=== PATIENT | male | born 1965 | race Caucasian/White ===

== ENCOUNTER 2016-06-24 11:54 | Emergency (ER) | payer OTHER ==
[2016-06-24] MEDS ORDERED: Adacel (T-DAP) 0.5 ML VIAL ONE (12:26)
--- NOTE | 2016-06-24 13:09 | ERRECORD ---
[facility] EMERGENCY RECORD HPI EXTREMITY (12:44 DHAM) CHIEF COMPLAINT: Patient presents for evaluation of pain and swelling to right pointer fingernail area. HISTORIAN: History provided by patient. MECHANISM OF INJURY: Unknown mechanism. LOCATION: Symptoms are localized, most severe in medial side of the right pointer finger. QUALITY: Pain is dull in nature, described as aching, described as pressure-like. SEVERITY: Current severity of pain rated as 8/10. TIME COURSE: Gradual onset of symptoms, 7, days priror to arrival, Symptoms are worsening, swelling has doubled in the last 24 hours. ASSOCIATED WITH: Associated with warmth, redness, swelling and increasing pain. EXACERBATED BY: Patient's condition exacerbated by nothing. RELIEVED BY: Patient's condition relieved by nothing. ROS (12:46 DHAM) CONSTITUTIONAL: Historian denies chills, denies fever. MUSCULOSKELETAL: Historian denies injury, pain just on the radial side of the right pointer fingernail. SKIN: see above. NEUROLOGIC: Historian denies paresthesias. ENDOCRINE: Historian denies polydipsia, denies polyuria. HEMO/LYMPHATIC: Historian denies abnormal blood clotting, denies easy bruising. ALLERGIC/IMMUNOLOGIC: Historian denies frequent infections. PAST MEDICAL HISTORY (12:04 HASA) MEDICAL HISTORY: Notes: Past medical history of hypertension. Reviewed on 06/24/16. MALE SURGICAL HISTORY: History of back surgery. History of left hand surgery x2. Reviewed on 06/24/16. PSYCHIATRIC HISTORY: Notes: No psychiatric history. Reviewed on 06/24/16. KNOWN ALLERGIES Penicillins CURRENT MEDICATIONS enalapril maleate: TABLET : Strength - 20 mg : ORAL Patient Dose: 20 mg Oral once a day. (12: HASA) PriLOSEC: CAPSULE,DELAYED RELEASE (ENTERIC COATED) : Strength - 20 mg : ORAL Patient Dose: 20 mg Oral once a day. (12: HASA) ibuprofen: TABLET : Strength - 200 mg : ORAL Patient Dose: 4 tab(s) Oral once a day. (12:02 HASA) &a-1R&a+25V*p+0X*[id number]*c202B*c15G*c2P*p-0X&a-25V&a+1R Name: Dk Yadav : 1965 M51 MedRec: [id number] AcctNum: [id number] Prepared: Hyun Jun 25, 2016 09:00 by Interface Page 1 of 3 pMD [facility] EMERGENCY RECORD VITAL SIGNS (11:58 HASA) VITAL SIGNS: BP: 125/80, Pulse: 97, Resp: 16 (Non-Labored), Temp: 98.3 (Oral), Pain: 8, O2 sat: 96 on Room Air, Time: 06/24/2016 11:58. PHYSICAL EXAM (12:47 DHAM) CONSTITUTIONAL: Vital signs reviewed, Patient afebrile, Pulse normal, Blood pressure normal, Respiratory rate normal, Patient appears non toxic, Patient appears in pain, in mild pain distress, Patient alert and oriented to person, place and time. UPPER EXTREMITY: right pointer finger with moderate swelling on the radial side of the nail with obvious paronychia. there is mild fluctuance, redness and swelling. normal cap refill. all joints of the pointer finger with normal rom. no felon noted on the palmar surface. normal sensation and motor fxn noted. NEURO: Lyford coma scale 15, Neuro exam findings include patient oriented to person, place and time, Speech normal, Gait normal. SKIN: Skin exam included findings of skin warm, dry, and normal in color, no rash, see UE above. LYMPHATIC: no lymphadenopathy of the RUE noted. MEDICATION ADMINISTRATION SUMMARY Drug Name: Adacel(Tdap Adolesn/Adult)(PF), Dose Ordered: 0.5 mL, Route: Intramuscular, Status: Given, Time: 12:36 06/24/2016, Detailed record available in Medication Service section. DOCTOR NOTES (12:56 DHAM) TEXT: My first antibiotic choice was Bactrim but given the enalapril, this may lead to hyperkalemia. Can't use augmentin due to his possible pcn allergy. Keflex appears to be the safest choice but there may be a cross reactivity if there is a pcn allergy. Pt and aware. PROBLEM LIST No recorded problems DIAGNOSIS (12:54 DHAM) FINAL: PRIMARY: paronychia right 2nd finger. PRESCRIPTION (12:54 DHAM) Keflex: CAPSULE : 250 mg : ORAL : Quantity: 1 Unit: cap(s) Route: ORAL Schedule: 3 times a day Dispense: 30 Unit: cap(s) May substitute. Refills: No Refills POTENTIAL ALLERGY REACTION: 'Penicillins' Override Rationale: Benefits outweigh risks, unknown reaction as child but he is unsure. NOTES: No refills. &a-1R&a+25V*p+0X*b3350Q*c202B*c15G*c2P*p-0X&a-25V&a+1R Name: Dk Yadav : 1965 [facility] [place] MedRec: [id number] AcctNum: [id number] Prepared: Hyun Jun 25, 2016 09:00 by Interface Page 2 of 3 pMD [facility] EMERGENCY RECORD DISPOSITION PATIENT: Disposition Type: Discharge, Disposition: *Discharge Home. (12:54 JAKE) Patient left the department. (13:02 GINA) Campos: JAKE=MD Joie, Farhat FUENTES=BAILEY Covington, Cely &a-1R&a+25V*p+0X*d3065Y*c202B*c15G*c2P*p-0X&a-25V&a+1R Name: Dk Yadav : 1965 [facility] [place] MedRec: [id number] AcctNum: [id number] Prepared: Hyun Jun 25, 2016 09:00 by Interface Page 3 of 3 pMD MTDD
--- NOTE | 2016-06-24 13:15 | PICIS ---
[facility] EMERGENCY RECORD TRIAGE (11:59 HASA) TRIAGE NOTES: Swelling and redness on pointer finger of right hand. (11:59 HASA) PATIENT: NAME: Dk Yadav, AGE: 51, GENDER: male, : Fri 1965, TIME OF GREET: Sat Jun 24, 2016 11:55, PREFERRED LANGUAGE: Tongan, ETHNICITY: Not or , ECODE BILLING MAP: [facility], SSN: [id number], Zip Code: [address], KG WEIGHT: 111.13, PHONE: , , , PERSON ID: [id number], PCP: JR. Cristofer APPIAH DAVID. (11:59 HASA) COMPLAINT: INFECTED FINGER. (11:59 HASA) ADMISSION: URGENCY: 4 Non Urgent, ADMISSION SOURCE: Home, TRANSPORT: Walk-in, BED: ER -03. (11:59 HASA) SIRS SCORING: Heart Rate 55-109 (0), Temp range 96.8-101.1 (0), respiratory rate 12-24 (0), Latest WBC 3-14.9 (0), Mental Status altered: no (0), Infection or Suspected Infection: No. (12:04 HASA) TRIAGE SCREENING: Patient denies suicidal ideation, Patient denies presence of domestic violence. (12:04 HASA) TREATMENTS IN PROGRESS: Treatments given Prehospital: Ibuprofen and aleve with daily meds. (12:04 HASA) PROVIDERS: TRIAGE NURSE: Cely Covington RN. (11:59 HASA) VITAL SIGNS: BP 125/80, Pulse 97, Resp 16, (Non-Labored), Temp 98.3, (Oral), Pain 8, O2 Sat 96, on Room Air, Time 06/24/2016 11:58. (11:58 HASA) KNOWN ALLERGIES Penicillins CURRENT MEDICATIONS enalapril maleate: TABLET : Strength - 20 mg : ORAL Patient Dose: 20 mg Oral once a day. (12:01 HASA) PriLOSEC: CAPSULE,DELAYED RELEASE (ENTERIC COATED) : Strength - 20 mg : ORAL Patient Dose: 20 mg Oral once a day. (12:01 HASA) ibuprofen: TABLET : Strength - 200 mg : ORAL Patient Dose: 4 tab(s) Oral once a day. (12:02 HASA) VITAL SIGNS (11:58 HASA) VITAL SIGNS: BP: 125/80, Pulse: 97, Resp: 16 (Non-Labored), Temp: 98.3 (Oral), Pain: 8, O2 sat: 96 on Room Air, Time: 06/24/2016 11:58. NURSING ASSESSMENT: EXTREMITY UPPER (12:05 HASA) CONSTITUTIONAL: Patient arrives ambulatory, Gait steady, History obtained from patient, Patient appears comfortable, Patient cooperative, Patient alert, Oriented to person, place and time, Skin warm, Skin dry, Skin normal in color, Mucous membranes pink, Mucous membranes moist, Patient is well-groomed, Patient complains of INFECTED FINGER, Patient presents to the ED complaining of &a-1R&a+25V*p+0X*i5252D*c202B*c15G*c2P*p-0X&a-25V&a+1R Name: Dk Yadav : 1965 M51 MedRec: [id number] AcctNum: [id number] Prepared: Hyun Jun 25, 2016 09:06 by Interface Page 1 of 5 pMD [facility] EMERGENCY RECORD finger pain on right hand. Pointer finger red and swollen. Reports pain as 8 out 10. Unknown cause of swelling. PAIN: Pointer finger on right hand, on a scale 0-10 patient rates pain as 8. LEFT UPPER EXTREMITY: Left upper extremity assessment findings include capillary refill less than 2 seconds, Skin color normal to hand, Skin temperature to hand warm, Distal sensation intact, Muscle tone normal, Inspection findings include: No pressure ulcer to the shoulder, Inspection findings include no pressure ulcer to the elbow, Inspection findings include no pressure ulcer. RIGHT UPPER EXTREMITY: Right upper extremity assessment findings include capillary refill less than 2 seconds, Skin color normal to hand, Skin temperature to hand warm, Distal sensation intact, Muscle tone normal, Inspection findings include: No pressure ulcer to the shoulder, Inspection findings include no pressure ulcer to the elbow, Inspection findings include no pressure ulcer, Inspection findings include redness, to Pointer finger on right hand, Inspection findings include swelling, to Pointer finger on right hand. SAFETY: Side rails up, Cart/Stretcher in lowest position, Family at bedside, Call light within reach, Hospital ID band on. NURSING PROCEDURE: DISCHARGE NOTE (13:02 LGIB) DISCHARGE: Patient discharged to home, ambulating without assistance, driving self, accompanied by //partner, Summary of Care printed/ provided, Patient requested and was provided an electronic copy of Discharge Instructions, Discharge instructions given to patient, Simple or moderate discharge teaching performed, Prescriptions given and instructions on side effects given, Above person(s) verbalized understanding of discharge instructions and follow-up care, Patient treated and evaluated by physician. BELONGINGS: Belongings and valuables with patient at time of discharge include:, Belongings remain with patient, Valuables remain with patient. MEDICATION ADMINISTRATION SUMMARY Drug Name: Adacel(Tdap Adolesn/Adult)(PF), Dose Ordered: 0.5 mL, Route: Intramuscular, Status: Given, Time: 12:36 06/24/2016, Detailed record available in Medication Service section. MEDICATION SERVICE (12:36 [facility]) Adacel(Tdap Adolesn/Adult)(PF): Order: Adacel(Tdap Adolesn/Adult)(PF) (niharika matthew(acell),tet vac/preservative free) - Dose: 0.5 mL : Intramuscular Schedule: Now Ordered by: Farhat Salter MD Entered by: Farhat Salter MD Sat Jun 24, 2016 12:35 , Acknowledged by: Cely Covington RN Sat Jun 24, 2016 12:36 Documented as given by: Cely Covington RN Sat Jun 24, 2016 12:36 &a-1R&a+25V*p+0X*q1291S*c202B*c15G*c2P*p-0X&a-25V&a+1R Name: Dk Yadav : 1965 M51 MedRec: [id number] AcctNum: [id number] Prepared: Hyun Jun 25, 2016 09:06 by Interface Page 2 of 5 pMD [facility] EMERGENCY RECORD Patient, Medication, Dose, Route and Time verified prior to administration. IM immunization, Amount given: 0.5 ML, Medication administered to left deltoid, Vaccination information sheet given to patient, embryology professor: Adacel, lot number: [id number], expiration: 2017, Correct patient, time, route, dose and medication confirmed prior to administration, Patient advised of actions and side-effects prior to administration, Allergies confirmed and medications reviewed prior to administration, Patient in position of comfort, Side rails up, Cart in lowest position, Family at bedside. HPI EXTREMITY (12:44 DHAM) CHIEF COMPLAINT: Patient presents for evaluation of pain and swelling to right pointer fingernail area. HISTORIAN: History provided by patient. MECHANISM OF INJURY: Unknown mechanism. LOCATION: Symptoms are localized, most severe in medial side of the right pointer finger. QUALITY: Pain is dull in nature, described as aching, described as pressure-like. SEVERITY: Current severity of pain rated as 8/10. TIME COURSE: Gradual onset of symptoms, 7, days priror to arrival, Symptoms are worsening, swelling has doubled in the last 24 hours. ASSOCIATED WITH: Associated with warmth, redness, swelling and increasing pain. EXACERBATED BY: Patient's condition exacerbated by nothing. RELIEVED BY: Patient's condition relieved by nothing. ROS (12:46 DHAM) CONSTITUTIONAL: Historian denies chills, denies fever. MUSCULOSKELETAL: Historian denies injury, pain just on the radial side of the right pointer fingernail. SKIN: see above. NEUROLOGIC: Historian denies paresthesias. ENDOCRINE: Historian denies polydipsia, denies polyuria. HEMO/LYMPHATIC: Historian denies abnormal blood clotting, denies easy bruising. ALLERGIC/IMMUNOLOGIC: Historian denies frequent infections. PAST MEDICAL HISTORY (12:04 HASA) MEDICAL HISTORY: Notes: Past medical history of hypertension. Reviewed on 06/24/16. MALE SURGICAL HISTORY: History of back surgery. History of left hand surgery x2. Reviewed on 06/24/16. PSYCHIATRIC HISTORY: Notes: No psychiatric history. Reviewed on 06/24/16. PHYSICAL EXAM (12:47 DHAM) CONSTITUTIONAL: Vital signs reviewed, Patient afebrile, Pulse normal, Blood pressure normal, Respiratory rate normal, Patient &a-1R&a+25V*p+0X*f7350J*c202B*c15G*c2P*p-0X&a-25V&a+1R Name: Dk Yadav : 1965 M51 MedRec: [id number] AcctNum: [id number] Prepared: Hyun Jun 25, 2016 09:06 by Interface Page 3 of 5 pMD [facility] EMERGENCY RECORD appears non toxic, Patient appears in pain, in mild pain distress, Patient alert and oriented to person, place and time. UPPER EXTREMITY: right pointer finger with moderate swelling on the radial side of the nail with obvious paronychia. there is mild fluctuance, redness and swelling. normal cap refill. all joints of the pointer finger with normal rom. no felon noted on the palmar surface. normal sensation and motor fxn noted. NEURO: Goode coma scale 15, Neuro exam findings include patient oriented to person, place and time, Speech normal, Gait normal. SKIN: Skin exam included findings of skin warm, dry, and normal in color, no rash, see UE above. LYMPHATIC: no lymphadenopathy of the RUE noted. EVENTS TRANSFER: Triage to Emergency Emergency Room -03. (Sat Jun 24, 2016 11:59 HASA) Removed from Emergency Emergency Room -03. (13:02 HASA) O2SAT INTERPRETATION (12:08 DHAM) O2SAT: Single pulse oximetry, Oxygen saturation 96%, on room air, Oxygen saturation interpretation: Normal, No intervention required. DOCTOR NOTES (12:56 DHAM) TEXT: My first antibiotic choice was Bactrim but given the enalapril, this may lead to hyperkalemia. Can't use augmentin due to his possible pcn allergy. Keflex appears to be the safest choice but there may be a cross reactivity if there is a pcn allergy. Pt and aware. INCISION AND DRAINAGE (12:51 DHAM) INCISION AND DRAINAGE: Side and/or site verified, Patient identification confirmed, Sterile procedures observed, Verbal consent obtained, Incision and drainage indicated for cutaneous abscess, There are no contraindications, Patient medicated prior to procedure, 2% Lidocaine without epinephrine used, Incision and drainage of finger abscess, to radial side right pointer finger, Paronychia, Incision was made over area of fluctuance, Explored for loculations, Drained pus, Amount (mLs) 2 drops of bloody prululence noted, After procedure, wound dressed, After procedure, neurovascular status normal, There were no complications, Tetanus status not up to date, tetanus immunization ordered, Patient tolerated the procedure well, I did take care to keep the scalpel blade in the horizontal plane to avoid the nail matrix. PROBLEM LIST No recorded problems DIAGNOSIS (12:54 DHAM) FINAL: PRIMARY: paronychia right 2nd finger. &a-1R&a+25V*p+0X*l3228I*c202B*c15G*c2P*p-0X&a-25V&a+1R Name: Dk Yadav : 1965 M51 MedRec: [id number] AcctNum: [id number] Prepared: Hyun Jun 25, 2016 09:06 by Interface Page 4 of 5 pMD [facility] EMERGENCY RECORD DISPOSITION PATIENT: Disposition Type: Discharge, Disposition: *Discharge Home. (12:54 DHAM) Patient left the department. (13:02 HASA) INSTRUCTION (12:56 DHAM) DISCHARGE: PARONYCHIA. FOLLOWUP: JR. Cristofer APPIAH, [facility], [address] [facility] [id number], [phone]. SPECIAL: Take 500mg capsule three times a day for 10 days Soak finger in warm water for 15 minutes after taking antibiotics three times a day. Return for increased redness, swelling or any other concerns. PRESCRIPTION (12:54 DHAM) Keflex: CAPSULE : 250 mg : ORAL : Quantity: 1 Unit: cap(s) Route: ORAL Schedule: 3 times a day Dispense: 30 Unit: cap(s) May substitute. Refills: No Refills POTENTIAL ALLERGY REACTION: 'Penicillins' Override Rationale: Benefits outweigh risks, unknown reaction as child but he is unsure. NOTES: No refills. IMAGING *DISCHARGE INSTRUCTIONS RECEIPT: Image captured from scanner. (13:03 LGIB) TETANUS CONSENT: Image captured from scanner. (13:04 LGIB) *SUPPLY CHARGE SHEET: Image captured from scanner. (13:04 LGIB) ADMIN (Hyun Jun 25, 2016 08:56 DHAM) DIGITAL SIGNATURE: MD Salter Darren. Campos: JAKE=MD Salter Darren HASA=BAILEY Covington, Cely LGIB=BAILEY George Lauren &a-1R&a+25V*p+0X*i8911Y*c202B*c15G*c2P*p-0X&a-25V&a+1R Name: Dk Yadav : 1965 M51 MedRec: [id number] AcctNum: [id number] Prepared: Hyun Jun 25, 2016 09:06 by Interface Page 5 of 5 pMD MTDD
== END 2016-06-24 13:00 | disposition home or self-care (01) ==
LOC: BURERS 11:54
DX: L03.011 Cellulitis of right finger (principal); I10 Essential (primary) hypertension
CPT/HCPCS: 26010; 90471; 90715; J2001

== ENCOUNTER 2017-09-08 18:12 | Emergency (ER) | payer BC, OTHER ==
[2017-09-08] MEDS ORDERED: HYDROcodone/Acetaminophen 5/325 mg Tablet ONE (22:21)
== END 2017-09-08 22:28 | disposition home or self-care (01) ==
LOC: BURERS 18:12
DX: M54.12 Radiculopathy, cervical region (principal); I10 Essential (primary) hypertension
CPT/HCPCS: 99283